=== PATIENT | female | born 1960 | race Caucasian/White ===

== ENCOUNTER 2020-06-20 08:26 | Outpatient (CLI) | payer OTHER, SELFPAY ==
--- NOTE | ~2020-06-20 | XR_ITS ---
EXAMINATION: XR hip LT min 2V DATE: 06/20/2020 08:53 INDICATION: Left hip pain. TECHNIQUE: 3 views of left hip were obtained. COMPARISON: Left hip radiographs 10/23/12 FINDINGS: Bone alignment is normal. No fracture. There is moderate left hip osteoarthritis. IMPRESSION: 1. Moderate left hip osteoarthritis. Reviewed, dictated and finalized at location A.
== END 2020-06-20 08:27 | disposition home or self-care (01) ==
LOC: ANHIMG 08:34
PROVIDERS: PCP Family Medicine; Visit Provider Family Medicine
DX: M16.12 Unilateral primary osteoarthritis, left hip (principal)
CPT/HCPCS: 73502

== ENCOUNTER 2020-11-03 16:17 | Outpatient (CLI) | payer OTHER, SELFPAY | END 2020-11-03 16:18 | disposition home or self-care (01) | LOC: ANHCOVIDVC 16:17 | PROVIDERS: PCP Family Medicine | DX: Z23 Encounter for immunization (principal) | CPT/HCPCS: 0001A; 91300 ==

== ENCOUNTER 2020-11-24 16:15 | Outpatient (CLI) | payer OTHER, SELFPAY | END 2020-11-24 16:16 | disposition home or self-care (01) | LOC: ANHCOVIDVC 16:15 | PROVIDERS: PCP Family Medicine | DX: Z23 Encounter for immunization (principal) | CPT/HCPCS: 0002A; 91300 ==

== ENCOUNTER 2021-02-13 10:18 | Outpatient (CLI) | payer OTHER, SELFPAY ==
--- NOTE | ~2021-02-13 | MM_ITS ---
EXAMINATION: MM screening diana BI w harley HISTORY: Screening mammogram TECHNIQUE: Craniocaudal and mediolateral oblique 3-D tomosynthesis images were obtained and synthetic 2-D images were generated. CAD analysis was submitted and interpreted. COMPARISON: 03/20/2019 diagnostic right mammogram and limited right breast ultrasound 03/09/2019, 02/24/2018, 05/20/2018 bilateral digital screening mammogram examinations BREAST PARENCHYMAL COMPOSITION: The breasts are almost entirely fatty. FINDINGS: Circumscribed low-density approximately 4.5 mm opacity in the lower central right breast co rresponds to the 5 mm simple cyst documented on 03/20/2019 limited right breast ultrasound examination . No suspicious mass, architectural distortion, malignant calcification, skin thickening or retraction or significant new or developing density of either breast is detected. IMPRESSION: 1. No mammographic evidence of malignancy. 2. Recommend routine screening mammography in one year. BI-RADS Category 2: Benign finding(s). Reviewed, dictated and finalized at location A.
== END 2021-02-13 10:19 | disposition home or self-care (01) ==
LOC: ANHIMG 10:20
PROVIDERS: PCP Family Medicine; Visit Provider Family Medicine
DX: Z12.31 Encounter for screening mammogram for malignant neoplasm of breast (principal)
CPT/HCPCS: 77063; 77067

== ENCOUNTER 2021-07-29 15:20 | Outpatient (CLI) | payer OTHER, SELFPAY ==
--- NOTE | ~2021-07-29 | CT_ITS ---
EXAMINATION: CT abdomen pelvis wo/w con DATE: 07/29/2021 16:45 INDICATION: Hematuria TECHNIQUE: Computed tomography (CT) of the abdomen and pelvis was performed without intravenous contr ast. CT of the abdomen and pelvis was then performed with a total of 130 mL Omnipaque 350 intravenous contrast using a double-bolus technique for simultaneous opacification of the renal parenchyma and r enal collecting system. The dose-length product (DLP) was 2746.92 mGy-cm. Automated exposure control and iterative reconstruction technique were employed. COMPARISON: None FINDINGS: The lung bases are clear. The heart size is normal. Calcified coronary artery atheroscleros is is noted. There is a small sliding hiatal hernia. The liver, spleen, pancreas, gallbladder, and ad renal glands are normal. No stones are identified in the kidneys, ureters, or bladder. There is no hy dronephrosis or hydroureter. No suspicious renal or urothelial lesion is identified. Portions of the right ureter are not opacified however no obstructing lesion is identified. No pathologically enlarge d abdominal or pelvic lymph nodes are identified. There is no free intraperitoneal gas or evidence of bowel obstruction. Colonic diverticulosis is present without evidence of diverticulitis. The appendi x is normal. There is a compression fracture T12. There is moderate lumbar spondylosis. IMPRESSION: 1. No CT correlate for the patient's symptoms. Reviewed, dictated and finalized at location A. GNA LACER
[2021-07-29 16:22] LABS: Estimated Glomerular Filt Rate 42
== END 2021-07-29 15:21 | disposition home or self-care (01) ==
PROVIDERS: PCP Family Medicine; Visit Provider Physician Assistant
DX: R31.9 Hematuria, unspecified (principal); M47.816 Spondylosis without myelopathy or radiculopathy, lumbar region; M48.54XA Collapsed vertebra, not elsewhere classified, thoracic region, initial encounter for fracture
CPT/HCPCS: 74178; Q9967

== ENCOUNTER 2021-09-29 08:09 | Outpatient (CLI) | payer OTHER, SELFPAY ==
--- NOTE | 2021-09-29 | ECG_ITS ---
Measurements Intervals Watson Rate: 74 P: 36 MI: 179 QRS: -17 QRSD: 97 T: 17 QT: 374 QTc: 417 Interpretive Statements SINUS RHYTHM VOLTAGE CRITERIA FOR LVH CONSIDER INFERIOR INFARCT, AGE INDETERMINATE ABNORMAL ECG Electronically Signed On 09-29-2021 9:16:42 TILE DECORATOR by Anderson Foster D.O.
[2021-09-29 08:53] LABS: Hematocrit 35.9 % (37.0-47.0); Hemoglobin 11.6 g/dL (12.0-15.0)
[2021-09-29 09:02] LABS: Albumin Level 4.7 g/dL (3.5-5.1); Estimated Glomerular Filt Rate 56
[2021-09-29 09:10] LABS: Urine Cotinine NEGATIVE
[2021-09-29 09:36] LABS: Hemoglobin A1C 6.5 % (<5.7)
[2021-09-29 12:24] LABS: Glucose 176 mg/dL (65-110)
== END 2021-09-29 08:10 | disposition home or self-care (01) ==
PROVIDERS: PCP Family Medicine; Visit Provider Orthopaedic Surgery
DX: Z01.818 Encounter for other preprocedural examination (principal); M16.12 Unilateral primary osteoarthritis, left hip; R94.31 Abnormal electrocardiogram [ECG] [EKG]
CPT/HCPCS: 80307; 82040; 82565; 82947; 83036; 85014; 85018; 93005

== ENCOUNTER 2021-12-21 12:06 | Outpatient (CLI) | payer OTHER, SELFPAY ==
[2021-12-21 13:34] LABS: Basophils Percent Auto 0.4 % (0.2-1.2); Eosinophils Absolute Auto 0.1 K/mm3 (0-0.3); Eosinophils Percent Auto 1.3 % (0-4.4); Hematocrit 35.3 % (37.0-47.0); Hemoglobin 11.6 g/dL (12.0-15.0); Immature Granulocyte Absolute 0.04 K/mm3 (0.00-0.031); Immature Granulocyte Percent A 0.5 % (0-0.5); Lymphocytes Absolute Auto 1.65 K/mm3 (0.9-3.2); Lymphocytes Percent Auto 19.9 % (18.3-44.2); Mean Corpuscular HGB Conc 32.9 g/dl (32-36); Mean Corpuscular Volume 88.3 fl (80-100); Mean Platelet Volume 8.7 fl (7.4-10.4); Monocytes Absolute Auto 0.6 K/mm3 (0.1-0.6); Monocytes Percent Auto 6.6 % (2.6-8.5); Neutrophils Absolute Auto 5.9 K/mm3 (1.3-6.7); Neutrophils Percent Auto 71.3 % (45.5-73.1); Platelet Count Result 221 k/mm3 (150-375); Red Cell Distribution Width 15.4 % (11.5-14.5); White Blood Count 8.3 K/mm3 (4.5-10.0)
[2021-12-21 13:45] LABS: Urine Cotinine NEGATIVE
[2021-12-21 13:47] LABS: Albumin Level 4.8 g/dL (3.5-5.1)
[2021-12-21 13:49] LABS: Hemoglobin A1C 7.3 % (<5.7)
[2021-12-21 13:52] LABS: Anion Gap 7 mmol/L (8-16); Blood Urea Nitrogen 21 mg/dL (7-17); Calcium 10.3 mg/dL (8.4-10.2); Carbon Dioxide 31 mmol/L (22-30); Chloride 98 mmol/L (98-107); Estimated Glomerular Filt Rate > 60; Glucose 103 mg/dL (65-110); Potassium 4.7 mmol/L (3.4-5.0); Sodium 136 mmol/L (137-145)
== END 2021-12-21 12:07 | disposition home or self-care (01) ==
LOC: ANHSURGERY 12:09
PROVIDERS: Anesthesiology; PCP Family Medicine; Visit Provider Orthopaedic Surgery
DX: Z01.818 Encounter for other preprocedural examination (principal); M16.12 Unilateral primary osteoarthritis, left hip; E11.65 Type 2 diabetes mellitus with hyperglycemia
CPT/HCPCS: 36415; 80048; 80307; 82040; 83036; 85025; 87081

== ENCOUNTER 2021-12-24 00:53 | Day surgery (SDC) | payer OTHER, SELFPAY ==
[2021-12-08 13:02] VITALS: BMI 37.7
--- NOTE | 2021-12-23 13:52 | PM.HPGS ---
History of Present Illness History of Present Illness Consent: Risks, benefits, and alternatives have been discussed and questions answered. Patient agrees to proceed with procedure. Chief complaint: hx of colon polyps Narrative: Georgette Edouard is a 61 year old female here for colon cancer screening. She has had polyps in the past, having had 1 removed in 2017 Review of Systems Review of Systems: All systems reviewed & are unremarkable except as noted in HPI and below PMFSH Past Medical History Medical History DM w/o complication type II, uncontrolled Elevated LFTs Essential (primary) hypertension Mixed hyperlipidemia Obesity, unspecified Post menopausal syndrome Surgical History Surgical History Hx of arthroscopy of knee (~10/1999) Left Hx of arthroscopy of knee (~11/2006) Right Family History Family History Mother Diabetes mellitus Father Hypertension Carcinoma of colon Family history of Parkinson's disease Grandparent Hypertension Carcinoma of colon Sibling Hypertension Family history of cardiovascular disease Acute myocardial infarction, Onset Age: 40 Other No family history of cardiovascular disease Social History Social History Smoking status: Never smoker Alcohol intake: never Substance use: never Living arrangements: with family Additional living arrangements comments: HUSB Spiritual care concerns: No Meds Home Medications and Allergies Home Medications Medication Instructions Recorded Confirmed Type tramadol 50 mg tablet 50 mg PO Q6H PRN #60 tablet 08/11/21 12/24/21 Rx empagliflozin 25 mg tablet 25 mg PO QAM #90 tablet 11/11/21 12/24/21 Rx acetaminophen 500 mg tablet 1,000 mg PO Q6H PRN tablet 11/23/21 12/24/21 History ferrous sulfate 325 mg (65 mg 325 mg PO BID 11/23/21 12/24/21 History iron) tablet ibuprofen 200 mg tablet 800 mg PO HS PRN 11/23/21 12/24/21 History magnesium 250 mg tablet 500 mg PO QAM tablet 11/23/21 12/24/21 History pyridoxine (vitamin B6) 100 mg 100 mg PO QACDINNER tablet 11/23/21 12/24/21 History tablet vitamin B complex 1 tablet PO QACDINNER 11/23/21 12/24/21 History atorvastatin 20 mg PO HS 12/08/21 12/24/21 History calcium carbonate-vitamin D3 1 tablet PO BID 12/08/21 12/24/21 History cholecalciferol (vitamin D3) 50 mcg PO QACDINNER 12/08/21 12/24/21 History glyburide 10 mg PO BID 12/08/21 12/24/21 History metformin 1,000 mg PO BID 12/08/21 12/24/21 History metoprolol succinate 50 mg PO QAM 12/08/21 12/24/21 History benzonatate 200 mg PO TID PRN 12/21/21 12/24/21 History hydrochlorothiazide 12.5 mg PO QAM 12/21/21 12/24/21 History insulin glargine-yfgn 94 unit SUBCUT QPM 12/21/21 12/24/21 History [Semglee(insulin glarg-yfgn)Pen] quinapril 40 mg PO QAM 12/21/21 12/24/21 History Allergies Allergy/AdvReac Type Severity Reaction Status Date / Time indapamide Allergy Unknown elevated Verified 12/24/21 06:35 liver Exam Resp: Auscultation: clear to auscultation bilaterally Cardio: Rate: regular rate Rhythm: regular rhythm GI: GI Palp: Yes Soft to palpation and No Tenderness to palpation present (GI) Assessment and Plan Assessment and plan (1) Colon cancer screening: Code(s): Z12.11 - Encounter for screening for malignant neoplasm of colon Status: Acute Assessment and Plan: Colonoscopy with possible biopsy or polypectomy or cautery or injection of substances.
[2021-12-24 06:36] VITALS: BP 151/75; PULSE 78; RESP 18; TEMP 36.4; O2SAT 100
[2021-12-24] MEDS: LACTATED RINGERS 1,000 ML 150 ML IV CONT (06:47)
[2021-12-24 06:52] LABS: Glucose Point of Care 178 mg/dl (65-105)
--- NOTE | 2021-12-24 07:02 | WPDANESEPPF ---
Anes - Initial Pre Proc Eval Procedure: Operation Date: 12/24/21 07:30 Proposed Procedures p Screening Colonoscopy - Cameron Mohr MD Date/Time: 12/24/21 07:02 Surgeon: Cameron Mohr MD Pre Op Diagnosis: hx of colon polyps Patient Data Age: 61 Gender: F Height: 1.68 m Weight: 104 kg Last Vital Signs Temp 36.4 C L 12/24/21 06:36 Pulse 78 12/24/21 06:36 Resp 18 12/24/21 06:36 BP 151/75 H 12/24/21 06:36 Pulse Ox 100 12/24/21 06:36 Allergies Allergy/AdvReac Type Severity Reaction Status Date / Time indapamide Allergy Unknown elevated Verified 12/24/21 06:35 liver Home Medications Medication Instructions Recorded Confirmed Type tramadol 50 mg tablet 50 mg PO Q6H PRN #60 tablet 08/11/21 12/24/21 Rx empagliflozin 25 mg tablet 25 mg PO QAM #90 tablet 11/11/21 12/24/21 Rx acetaminophen 500 mg tablet 1,000 mg PO Q6H PRN tablet 11/23/21 12/24/21 History ferrous sulfate 325 mg (65 mg 325 mg PO BID 11/23/21 12/24/21 History iron) tablet ibuprofen 200 mg tablet 800 mg PO HS PRN 11/23/21 12/24/21 History magnesium 250 mg tablet 500 mg PO QAM tablet 11/23/21 12/24/21 History pyridoxine (vitamin B6) 100 mg 100 mg PO QACDINNER tablet 11/23/21 12/24/21 History tablet vitamin B complex 1 tablet PO QACDINNER 11/23/21 12/24/21 History atorvastatin 20 mg PO HS 12/08/21 12/24/21 History calcium carbonate-vitamin D3 1 tablet PO BID 12/08/21 12/24/21 History cholecalciferol (vitamin D3) 50 mcg PO QACDINNER 12/08/21 12/24/21 History glyburide 10 mg PO BID 12/08/21 12/24/21 History metformin 1,000 mg PO BID 12/08/21 12/24/21 History metoprolol succinate 50 mg PO QAM 12/08/21 12/24/21 History benzonatate 200 mg PO TID PRN 12/21/21 12/24/21 History hydrochlorothiazide 12.5 mg PO QAM 12/21/21 12/24/21 History insulin glargine-yfgn 94 unit SUBCUT QPM 12/21/21 12/24/21 History [Semglee(insulin glarg-yfgn)Pen] quinapril 40 mg PO QAM 12/21/21 12/24/21 History Laboratory Tests 12/24/21 06:49 POC Capillary Glucose 178 mg/dl H mg/dl (65-105) Patient hx anesthesia problems: none Family hx anesthesia problems: none Results Review: All pre-operative results and documents have been reviewed as part of the pre-operative evaluation. [facility] Past Medical History Medical History DM w/o complication type II, uncontrolled Elevated LFTs Essential (primary) hypertension Mixed hyperlipidemia Obesity, unspecified Post menopausal syndrome Surgical History Surgical History Hx of arthroscopy of knee (~10/1999) Left Hx of arthroscopy of knee (~11/2006) Right Family History Family History Mother Diabetes mellitus Father Hypertension Carcinoma of colon Family history of Parkinson's disease Grandparent Hypertension Carcinoma of colon Sibling Hypertension Family history of cardiovascular disease Acute myocardial infarction, Onset Age: 40 Other No family history of cardiovascular disease Social History Social History Smoking status: Never smoker Alcohol intake: never Substance use: never Living arrangements: with family Additional living arrangements comments: HUSB Spiritual care concerns: No Anes - Eval Final PreProcedure Day of Procedure 12/24/21 07:02 Patient weight: obese Heart: regular rate and rhythm Lungs: clear to auscultation Airway: Mallampati scale class II Neurological: alert and oriented Last oral intake: >/= 8 hours ASA classification: III Emergent: no Anesthetic plan: proceed Anesthesia type and monitoring: general GIVS and standard monitoring Results Review: All pre-operative results and documents have been reviewed as part of the pre-operative evaluation. Informed Consent: The patient's anesthetic pl
[2021-12-24 07:50] VITALS: BP 113/48; PULSE 71; RESP 22; O2SAT 100
[2021-12-24 08:00] VITALS: BP 128/69; PULSE 67; RESP 23; O2SAT 100
[2021-12-24 08:10] VITALS: BP 141/76; PULSE 68; RESP 18; O2SAT 100
== END 2021-12-24 08:30 | disposition home or self-care (01) ==
PROVIDERS: PCP Family Medicine; Visit Provider Internal Medicine Gastroenterology
PROC: 0DJD8ZZ Inspection of Lower Intestinal Tract, Via Natural or Artificial Opening Endoscopic (ICD-10-PCS; CPT 45378; principal; 2021-12-24 07:30)
DX: Z12.11 Encounter for screening for malignant neoplasm of colon (principal); E11.9 Type 2 diabetes mellitus without complications; I10 Essential (primary) hypertension; E78.2 Mixed hyperlipidemia; E66.9 Obesity, unspecified; K64.8 Other hemorrhoids; K57.30 Diverticulosis of large intestine without perforation or abscess without bleeding
CPT/HCPCS: 45378; 82948; J2704; J7120

== ENCOUNTER 2022-01-19 00:06 | Day surgery (SDC) | payer OTHER, SELFPAY ==
[2021-12-21 12:22] VITALS: BMI 39.3
[2021-12-21 12:36] VITALS: BP 159/77; PULSE 78; RESP 16; TEMP 36.8; O2SAT 97
--- NOTE | 2021-12-21 12:49 | PC.NURSE ---
Report to the Outpatient Waiting Room, entrance under the green pavilion located off [facility], at time __8:30AM on date __01/19/22 . OR Time: __10:30AM . - You and your visitor will be asked a series of questions to screen for COVID 19 for your protection. - Only one visitor is allowed at this time. - The patient visitor is requested to leave or wait in car when not with patient. - A mask is required within the hospital. Patients may have clear liquids (water, carbonated beverages, clear teas, apple juice) until 3 hours prior to surgery with a maximum of 20 ounces. - No food from midnight until time of surgery - Infants may have breast milk until 4 hours before surgery, infant formula 6 hours prior to surgery. - Children will be allowed to drink immediately following surgery. If applicable, please bring a bottle or sippy cup to assist with drinking. Juice, water, soda, and popsicles are readily available. For infants on formula, please bring formula the day of surgery. Pacifiers are allowed. Take the following medications with a SIP of water the morning of surgery: ____METOPROLOL, TRAMADOL NEEDED Medications to discontinue per physician ____HOLD IBUPROFEN AND ALL VITAMINS/SUPPLEMENTS 7 DAYS PRE-OP PER DR OWEN Date to take last dose 01/12/22 Please no make-up, nail wolof, hairspray, perfume, deodorant, or body powder the day of surgery. No jewelry (including any body piercings) or valuables the day of surgery, leave them at home. Please take a shower or bath the night before, or the morning of, surgery with an antibacterial soap. Wear comfortable, loose fitting clothing. Children are encouraged to wear pajamas. - Jewelry must be removed prior to entering the operating room. Rings and piercings that are not removed may be cut off. - The hospital will not accept responsibility for valuables. - Please leave all valuables, including medications, at home the day of surgery. If you are going home after surgery, a licensed winch driver must drive you home. - NO public transportation without another adult. - We recommend that an adult stay with you for 24 hours following discharge. - We also recommend that you do not drive, make important decision, drink alcoholic beverages, or take any drugs that were not prescribed by your health care provider for at least 24 hours after your discharge time. For Pediatric surgeries, we recommend two adults accompany the child home (only one inside the building at this time). Follow any additional instructions given to you from your surgeon. If you or anyone in your household have experienced Covid symptoms in the past week, please notify your surgeon or the nurse liaison at the phone number below for possible testing. Telephone instructions given to __PATIENT and asked if any additional questions and then verbalized understanding. Patient advised to call surgeon office or pre surgery nurse liaison [phone] if any additional questions.
[2022-01-19] VITALS (18 sets, daily range): BP systolic 129–155; BP diastolic 51–92; PULSE 74–88; RESP 12–20; TEMP 35.7–36.4; O2SAT 95–100
--- NOTE | ~2022-01-19 | XR_ITS ---
EXAMINATION: XR hip LT min 2V DATE: 01/19/2022 12:37 INDICATION: Postoperative evaluation following left total hip arthroplasty TECHNIQUE: Anteroposterior and lateral views of the left hip were obtained. COMPARISON: 12/21/2021 FINDINGS: Interval placement of a noncemented left total hip arthroplasty which appears well seated in near armaan tomic alignment. Expected subcutaneous gas in the postoperative bed. No fractures identified. IMPRESSION: 1. Left total hip arthroplasty, negative for postoperative purposes. Reviewed, dictated and finalized at location B.
--- NOTE | 2022-01-19 07:18 | WPDHPUPDATE1 ---
History and Physical Update Update Date/Time: 01/19/22 07:18 History and Physical has been reviewed, including an updated exam of the patient. There are NO changes in the patient's condition. Risks, benefits, and alternatives have been discussed and questions answered. Patient agrees to proceed with procedure.
[2022-01-19] MEDS: LACTATED RINGERS 1,000 ML 30 ML IV CONT ×2 (08:30→12:13)
--- NOTE | 2022-01-19 08:43 | WPDANESEPPF ---
Anes - Initial Pre Proc Eval Procedure: Operation Date: 01/19/22 10:30 Proposed Procedures p Left Total Hip Arthroplasty - Davon Ash MD Date/Time: 01/19/22 08:43 Surgeon: Davon Ash MD Pre Op Diagnosis: Prim O A Left Hip Patient Data Age: 61 Gender: F Height: 1.64 m Weight: 106.4 kg Last Vital Signs Temp 36.8 C 12/21/21 12:36 Pulse 78 12/21/21 12:36 Resp 16 12/21/21 12:36 BP 159/77 H 12/21/21 12:36 Pulse Ox 97 12/21/21 12:36 O2 Del Method Room Air 12/21/21 12:36 Allergies Allergy/AdvReac Type Severity Reaction Status Date / Time indapamide Allergy Unknown elevated Verified 12/24/21 06:35 liver Home Medications Medication Instructions Recorded Confirmed Type tramadol 50 mg tablet 50 mg PO Q6H PRN pain #60 tabs 08/11/21 12/24/21 Rx empagliflozin 25 mg tablet 25 mg PO QAM #90 tabs 11/11/21 12/24/21 Rx (Jardiance) acetaminophen 500 mg tablet 1,000 mg PO Q6H PRN Pain 11/23/21 12/24/21 History (Tylenol Extra Strength) ferrous sulfate 325 mg (65 mg 325 mg PO BID 11/23/21 12/24/21 History iron) tablet ibuprofen 200 mg tablet (Advil) 800 mg PO HS PRN Pain 11/23/21 12/24/21 History magnesium 250 mg tablet 500 mg PO QAM 11/23/21 12/24/21 History pyridoxine (vitamin B6) 100 mg 100 mg PO QACDINNER 11/23/21 12/24/21 History tablet vitamin B complex (B 1 tablet PO QACDINNER 11/23/21 12/24/21 History Complex-Vitamin B12) atorvastatin 20 mg tablet 20 mg PO HS 12/08/21 12/24/21 History calcium carbonate 500 mg-vitamin 1 tablet PO BID 12/08/21 12/24/21 History D3 2.5 mcg (100 unit) chewable tablet cholecalciferol (vitamin D3) 50 50 mcg PO QACDINNER 12/08/21 12/24/21 History mcg (2,000 unit) tablet glyburide 5 mg tablet 10 mg PO BID 12/08/21 12/24/21 History metformin 500 mg tablet,extended 1,000 mg PO BID 12/08/21 12/24/21 History release 24 hr metoprolol succinate 50 mg 50 mg PO QAM 12/08/21 12/24/21 History tablet,extended release 24 hr benzonatate 200 mg capsule 200 mg PO TID PRN Cough 12/21/21 12/24/21 History hydrochlorothiazide 12.5 mg capsule 12.5 mg PO QAM 12/21/21 12/24/21 History insulin glargine-yfgn 100 unit/mL 94 unit subcut QPM 12/21/21 12/24/21 History (3 mL) subcutaneous pen (Semglee (insulin glargine-yfgn) Pen) quinapril 40 mg tablet 40 mg PO QAM 12/21/21 12/24/21 History Patient hx anesthesia problems: none Family hx anesthesia problems: none Results Review: All pre-operative results and documents have been reviewed as part of the pre-operative evaluation. [facility] Past Medical History Medical History DM w/o complication type II, uncontrolled Elevated LFTs Essential (primary) hypertension Mixed hyperlipidemia Obesity, unspecified Post menopausal syndrome Surgical History Surgical History Hx of arthroscopy of knee (~10/1999) Left Hx of arthroscopy of knee (~11/2006) Right Family History Family History Mother Diabetes mellitus Father Hypertension Carcinoma of colon Family history of Parkinson's disease Grandparent Hypertension Carcinoma of colon Sibling Hypertension Family history of cardiovascular disease Acute myocardial infarction, Onset Age: 40 Other No family history of cardiovascular disease Social History Social History Smoking status: Never smoker Alcohol intake: never Substance use: never Living arrangements: with family Additional living arrangements comments: HUSB Spiritual care concerns: No Anes - Eval Final PreProcedure Day of Procedure 01/19/22 08:43 Patient weight: obese Heart: regular rate and rhythm Lungs: clear to auscultation Airway: Mallampati scale class II Neurological: alert and oriented ASA class
[2022-01-19] MEDS: TRANEXAMIC ACID 1,000MG/ISO100 1,000 MG/100 ML BAG 200 MG IVPB (08:45)
[2022-01-19] MEDS: ACETAMINOPHEN 500 MG TABLET 1000 MG PO (08:48)
[2022-01-19 09:10] LABS: Glucose Point of Care 175 mg/dl (65-105)
[2022-01-19] MEDS: ceFAZolin 2 GM/D5W 50 ML 2 GM/50 ML BAG IVPB ×2 (10:09→17:02)
[2022-01-19 12:30] LABS: Glucose Point of Care 147 mg/dl (65-105)
[2022-01-19] MEDS: ONDANSETRON INJ 4 MG/2 ML VIAL IV PUSH ×2 (13:05→14:31)
--- NOTE | 2022-01-19 14:07 | ADMGEN ---
This patient, Georgette Edouard, was admitted to 2 Medical Room 250-01. Patient/family oriented to hospital policies and general routines including ID bracelet, bed and alarms, visiting hours, pain management, procedures, bathroom and other care routines, personal items, smoking policy, room service/diet, and visiting hours. Information on how to activate the Rapid Response Team has been discussed. Patient/Family are encouraged to report perceived risks to care and to ask questions if they do not understand what they are told or what they should do. Report received from CARISSA Rader.
[2022-01-19] MEDS: SODIUM CHLORIDE 0.9% IV 1,000 ML 125 ML IV CONT (14:32)
--- NOTE | 2022-01-19 14:39 | W.PM.PROC2 ---
Procedure Note - Detailed Date of Procedure 01/19/22 Pre-op Diagnosis Prim O A Left Hip Post-op Diagnosis Same Procedure Performed Left Total Hip Arthroplasty Surgeon Davon Ash MD [employer] Tester Annelise Nassar PA-C Anesthesia General Description of Procedure The patient was given preoperative antibiotics. A general anesthetic was administered. The patient was carefully placed in the lateral decubitus position on the PEG board. The shoulders and hips were carefully positioned for component and leg length positioning reference. The hip was prepped and draped in the usual sterile fashion. A longitudinal incision was created over the posterior aspect of the greater trochanter. Careful dissection was brought down through the deep fascia with electrocautery. A minimally invasive optimized posterior approach to the hip was performed. The short external rotators and capsule were taken down in an L-shaped capsulotomy. The tissue was tagged for later repair using number 2 high strength suture. The femoral neck was measured and taken in situ. The femoral head was removed. The acetabulum was carefully exposed. The inferior capsule was released. The labrum was resected. The acetabulum was sequentially reamed to one over the intended cup size. The cup was impacted into position with excellent press-fit. Typical anatomic landmarks, including the bony contact points as well as the inferior transverse acetabular ligament were used to confirm cup positioning with preoperative templating. Attention was turned to the femur, which was carefully exposed. The hip was reamed and then broached sequentially. Excellent press-fit was obtained with the broach. The hip was trialed. Measurements were utilized, including the lesser trochanter as well as the center of the femoral head and the tip of the trochanter, and excellent assessment of the offset and leg lengths were confirmed. The real component was impacted into position. Trialing confirmed appropriate leg length and offset with soft tissue balancing as well apparent feel of the leg, both at the knee and the heel. Soft tissues were assessed using the the iliotibial band. Reduction of the posterior capsule and external rotators were also used as a secondary assessment. The hip was copiously irrigated with pulsatile lavage antibiotic solution periodically throughout the procedure. The real components were then assembled and reduced. The hip was stable throughout typical maneuvers, including extension, external rotation to 70 degrees, the position of sleep as well as flexion to 90 degrees with internal rotation past 45 degrees. The shake test confirmed stability without impingement. Osteophytes were removed as necessary. The short external rotators and capsule were repaired back to the posterior trochanter through drill holes. The deep fascia was repaired with running number 2 Quill suture, followed by 0 Stratafix suture and 2-0 Stratafix suture in the dermis. Steri-Strips were placed on the skin, followed by a sterile silver occlusive dressing. There were no complications. Meticulous hemostasis was maintained with the AquaMantys device. The patient was brought to the recovery room in stable condition. There were no complications. Physician assistant to the vice president, Annelise Nassar PA-C, required for surgery; including patient positioning, draping, tissue retraction, maintaining instrument position, hip dislocation/ relocation, wound closure, and dressing placement. Implants The Accolade II hip stem, 127 degree size 4 , was utilized with excellent press-fit. The 52 mm Trident II acetabular component was impacted with excellent press-fit stability. 10 degree elevated liner. The +0 , 36 mm Biolox ceramic femoral head was utilized. Estimated Blood Loss -250.0 Drains No Packing No Pathology None sent Complications No immediate complications Condition Stable Disposition PACU [facility] Billing Surgery - Charge Forwar
--- NOTE | 2022-01-19 14:51 | PC.NURSE ---
Patient states she takes 94 units of Semglee at home. She was taking 100 units, but her doctor told her she could decrease it to 94. I called patient's pharmacy that she fills this prescription to verify this dose. The pharmacy confirmed the dose that is ordered is 100 units. I called our pharmacy to verify this dose. They stated this dose is a high dose, but is a true order.
[2022-01-19] MEDS: CHOLECALCIFEROL 1,000 UNITS TABLET 2000 UNITS PO (16:19)
[2022-01-19] MEDS: glyBURIDE 5 MG TABLET 10 MG PO (16:20)
[2022-01-19] MEDS: metFORMIN HCL XR 500 MG TAB.SR.24H 1000 MG PO (16:20)
[2022-01-19] MEDS: PYRIDOXINE HCL 50 MG TABLET 100 MG PO (16:20)
[2022-01-19] MEDS: FERROUS SULFATE 324 MG TABLET PO (16:20)
[2022-01-19] MEDS: SENNA/DOCUSATE SODIUM TABLET 2 TAB PO (16:20)
[2022-01-19] MEDS: MELOXICAM 7.5 MG TABLET PO (16:21)
[2022-01-19] MEDS: ASPIRIN 81 MG ENTERIC TABLET PO (16:21)
[2022-01-19] MEDS: VITAMIN B COMPLEX CAPSULE 1 CAP PO (16:21)
[2022-01-19] MEDS: oxyCODONE HCL (*CRX) 5 MG TAB IR 10 MG PO (16:22)
[2022-01-19 16:34] LABS: Glucose Point of Care 192 mg/dl (65-105)
[2022-01-19] MEDS: INSULIN GLARGINE (*BKC) 100 UNITS/ML 94 UNITS SUB-Q (17:02)
[2022-01-19] MEDS: ATORVASTATIN 20 MG TABLET PO (20:19)
[2022-01-19] MEDS: FAMOTIDINE 20 MG TABLET PO (20:19)
[2022-01-20 01:15] VITALS: BP 104/56; PULSE 80; RESP 20; TEMP 36.5; O2SAT 99
[2022-01-20] MEDS: ceFAZolin 2 GM/D5W 50 ML 2 GM/50 ML BAG IVPB ×2 (02:39→08:59)
[2022-01-20 02:40] LABS: Glucose Point of Care 164 mg/dl (65-105)
[2022-01-20 04:51] VITALS: O2SAT 97
[2022-01-20 05:01] VITALS: BP 107/42; PULSE 90; RESP 20; TEMP 36.9; O2SAT 98
[2022-01-20 07:32] VITALS: BP 135/55; PULSE 94; RESP 16; TEMP 36.3; O2SAT 100
[2022-01-20 07:44] LABS: Glucose Point of Care 190 mg/dl (65-105)
[2022-01-20 08:12] VITALS: PULSE 76
[2022-01-20] MEDS: METOPROLOL SUCCINATE EXT REL 50 MG TABCR PO (08:12)
[2022-01-20] MEDS: lisinopriL 20 MG TABLET 40 MG PO (08:13)
[2022-01-20] MEDS: metFORMIN HCL XR 500 MG TAB.SR.24H 1000 MG PO (08:13)
[2022-01-20] MEDS: MAGNESIUM 27 MG TABLET (500 MG MAG GLUCONATE) PO (08:13)
[2022-01-20] MEDS: FAMOTIDINE 20 MG TABLET PO (08:14)
[2022-01-20] MEDS: glyBURIDE 5 MG TABLET 10 MG PO (08:14)
[2022-01-20] MEDS: ASPIRIN 81 MG ENTERIC TABLET PO (08:14)
[2022-01-20] MEDS: FERROUS SULFATE 324 MG TABLET PO (08:14)
[2022-01-20] MEDS: hydroCHLOROthiazide 12.5 MG CAPSULE PO (08:14)
[2022-01-20] MEDS: EMPAGLIFLOZIN 25 MG TABLET PO (08:14)
[2022-01-20] MEDS: MELOXICAM 7.5 MG TABLET PO (08:14)
--- NOTE | 2022-01-20 09:20 | WPDANESPN ---
Anes - Prog Note Post-Op Date/Time: 01/20/22 09:20 Cardiovascular status: normal Respiratory status: normal Airway patency: baseline Mental status: baseline Post-Op hydration status: normal Vital Signs: Last Vital Signs Temp 36.3 C L 01/20/22 07:32 Pulse 76 01/20/22 08:12 Resp 16 01/20/22 07:32 BP 135/55 L 01/20/22 07:32 Pulse Ox 100 01/20/22 07:32 O2 Del Method Room Air 01/20/22 04:51 O2 Flow Rate 8 01/19/22 12:40 Pain Score (VAS): 10/01 I/O: Intake & Output 01/19/22 01/20/22 01/20/22 23:59 07:59 15:59 Intake Total 1070 550 Balance 1070 550 01/19/22 01/19/22 01/19/22 08:45 12:20 16:32 POC Capillary Glucose 147 H 192 H Blood Type B Positive Antibody Screen Negative 01/20/22 01/20/22 02:35 07:32 POC Capillary Glucose 164 H 190 H Blood Type Antibody Screen Post-procedural complaints: none Patient Feedback: Patient satisfied with anesthetic care.
--- NOTE | 2022-01-20 09:26 | PM.IMCN ---
Assessment and Plan Assessment and plan (1) Status post left hip replacement: Code(s): Z96.642 - Presence of left artificial hip joint Status: Acute Assessment and Plan: POD #1 left total hip arthroplasty Managed per orthopedic surgery Patient tolerating PT/OT Analgesics available as needed (2) DM w/o complication type II, uncontrolled: Code(s): E11.65 - Type 2 diabetes mellitus with hyperglycemia Status: Acute Assessment and Plan: Last A1c 7.3 Continue home insulin regimen and PO hypoglycemics (3) Anemia, unspecified: Code(s): D64.9 - Anemia, unspecified Status: Acute Assessment and Plan: H&H reviewed and are stable (4) Benign essential HTN: Code(s): I10 - Essential (primary) hypertension Status: Acute Assessment and Plan: Blood pressures have been well controlled Continue HCTZ, metoprolol, lisinopril HPI Data of Consult Consult date: 01/20/22 Requesting Physician: Davon Ash MD Primary Care Provider: Emory Oglesby MD Consult Narrative Narrative: Date of service: 01/20/2022 Georgette Edouard is a 61 year old female with a history of type 2 diabetes mellitus, hypertension, hyperlipidemia, and osteoarthritis of the left hip who is now s/p left total hip arthroplasty performed on 01/19/[address] Ash. She tolerated the procedure well. Her pain is 4/10 at this time. She has been participating in therapy and has been doing well with this. She plans to return home today which she lives with her who is able to assist her as needed. She has 1 step to enter her home and otherwise has no additional stairs. She denies shortness of breath. Her last BM was yesterday morning. She had some mild nausea postoperatively but this has resolved and she is tolerating her diet. Review of Systems Review of Systems: All systems reviewed & are unremarkable except as noted in HPI and below PMFSH Past Medical History Medical History (Updated 01/20/22 @ 09:45 by SHAR Gilliland) DM w/o complication type II, uncontrolled Elevated LFTs Essential (primary) hypertension Mixed hyperlipidemia Obesity, unspecified Osteoarthritis of left hip Post menopausal syndrome Surgical History Surgical History (Updated 01/20/22 @ 09:36 by Lynda Cárdenas PA-C) History of left hip replacement Hx of arthroscopy of knee (~10/1999) Left Hx of arthroscopy of knee (~11/2006) Right Family History Family History Mother Diabetes mellitus Father Hypertension Family history of Parkinson's disease Heart disease Parkinson disease Grandparent Hypertension Carcinoma of colon Sibling Hypertension Family history of cardiovascular disease Acute myocardial infarction, Onset Age: 40 Other No family history of cardiovascular disease Social History Social History (Updated 01/20/22 @ 09:38 by Lynda Cárdenas PA-C) Social History: Ms. Eduoard lives at home with her . She is independent in her daily activities. She is retired. Her PCP is Dr. Oglesby. She designates her , Robert, as her surrogate decision maker. She is a DNR. Smoking status: Never smoker Second hand tobacco smoke exposure: No Alcohol intake: never Substance use: never Substance use type: does not use Living arrangements: with family Occupation/Education: retired Spiritual care concerns: No Meds Home Medications and Allergies Home Medications Medication Instructions Recorded Confirmed Type tramadol 50 mg tablet 50 mg PO Q6H PRN pain #60 tabs 08/11/21 01/19/22 Rx empagliflozin 25 mg tablet 25 mg PO QAM #90 tabs 11/11/21 01/19/22 Rx (Jardiance) acetaminophen 500 mg tablet 1,000 mg PO Q6H PRN Pain 11/23/21 01/19/22 History (Tylenol Extra Strength) ferrous sulfate 325 mg (65 mg 325 mg PO BID 11/23/21 01/19/22 History iron) tablet
--- NOTE | 2022-01-20 09:48 | PM.DS ---
DS: Admitting Diagnosis Discharge Date 01/20/22 Admitting Diagnosis OA Left hip DS: Discharge Diagnosis Discharge Diagnosis Plan Postop day 1: Total hip arthroplasty. Patient tolerated procedure well. No complications. Pain manageable with pain medication. No numbness or tingling. We had a lengthy discussion regarding postoperative wound care, limitations, expectations, and exercises. Patient shows good understanding. Patient has had initial physical therapy and is tolerating it well. DVT prophylaxis: 81 mg baby aspirin b.i.d. for 14 days. Short frequent walks. Pain medication: Percocet. Ibuprofen. Patient has followup appointment with Dr. Ash in 3 weeks DS: Summary Hospital Course Reason for hospitalization: Total hip arthroplasty Hospital Course: Patient tolerated procedure well. Has had initial PT/OT. Status at Discharge Functional status at discharge: uses cane/walker Overall status at discharge: patient is progressing back to baseline Time Spent with Patient Time attestation: Total time spent providing and/or coordinating discharge services: Exam Narrative: Overweight 61 y/o female. Resting comfortably in chair. Wearing compression socks bilaterally. Dressing dry and intact with no drainage. Moderate swelling. No ecchymosis. No erythema. No hematoma. Range of motion limited due to pain. Calf nontender. Thigh nontender. Neurologic status intact. No varicosities. Distal pulses palpable. DS: Data Data Completed and Pending Labs on day of discharge: Labs from last 24 hours 01/20/22 01/20/22 01/19/22 07:32 02:35 16:32 POC Capillary Glucose 190 H 164 H 192 H Blood Type Antibody Screen 01/19/22 01/19/22 12:20 08:45 POC Capillary Glucose 147 H Blood Type B Positive Antibody Screen Negative Discharge Plan Discharge Patient Disposition: Home, Self-Care Discharge Instructions: See green instruction sheet Stand Alone Forms: General Discharge Instructions Follow-up/Referrals: Annelise Nassar PA [Physician Jukebox Operator] - Discharge Medications: New aspirin 81 mg tablet,delayed release (DR/EC) 81 mg PO BID 14 Days Qty: 28 0RF oxycodone-acetaminophen 5-325 mg tablet 1 - 2 tablet PO Q4-6H MDD 6 PRN (Reason: pain) Qty: 30 0RF Continued pyridoxine (vitamin B6) 100 mg tablet 100 mg PO QACDINNER magnesium 250 mg tablet 500 mg PO QAM ferrous sulfate 325 mg (65 mg iron) tablet 325 mg PO BID vitamin B complex [B Complex-Vitamin B12] Tablet 1 tablet PO QACDINNER ibuprofen [Advil] 200 mg tablet 800 mg PO HS PRN (Reason: Pain) acetaminophen [Tylenol Extra Strength] 500 mg tablet 1,000 mg PO Q6H PRN (Reason: Pain) quinapril 40 mg tablet 40 mg PO QAM Rx Instructions: TAKE 1 TABLET BY MOUTH EVERY DAY hydrochlorothiazide 12.5 mg capsule 12.5 mg PO QAM Rx Instructions: TAKE 1 CAPSULE BY MOUTH EVERY DAY insulin glargine-yfgn [Semglee(insulin glarg-yfgn)Pen] 100 unit/mL (3 mL) insulin pen 94 unit subcut QPM benzonatate 200 mg capsule 200 mg PO TID PRN (Reason: Cough) atorvastatin 20 mg tablet 20 mg PO HS Rx Instructions: TAKE 1 TABLET BY MOUTH EVERY DAY glyburide 5 mg tablet 10 mg PO BID Rx Instructions: TAKE 2 TABLETS BY MOUTH TWICE A DAY metoprolol succinate 50 mg tablet extended release 24 hr 50 mg PO QAM Rx Instructions: TAKE 1 TABLET BY MOUTH EVERY DAY metformin 500 mg tablet extended release 24 hr 1,000 mg PO BID Rx Instructions: TAKE TWO TABLETS BY MOUTH TWICE DAILY calcium carbonate-vitamin D3 500 mg-2.5 mcg (100 unit) tablet,chewable 1 tablet PO BID Rx Instructions: TAKE 1 TABLET BY MOUTH TWICE A DAY cholecalciferol (vitamin D3) 50 mcg (2,000 unit) tablet 50 mcg PO QACDINNER Rx Instructions: TAKE ONE TABLET BY MOUTH ONCE DAILY tramadol 50 mg tablet 50 mg PO Q6
== END 2022-01-20 11:52 | disposition home or self-care (01) ==
LOC: ANHSURGERY 10:15 → ANH2MED 14:02
PROVIDERS: PCP Family Medicine; Visit Provider Orthopaedic Surgery
PROC: (CPT 27130; principal; 2022-01-19 10:30)
DX: M17.12 Unilateral primary osteoarthritis, left knee (principal); I10 Essential (primary) hypertension; E78.2 Mixed hyperlipidemia; R79.89 Other specified abnormal findings of blood chemistry; E11.65 Type 2 diabetes mellitus with hyperglycemia; E66.9 Obesity, unspecified; Z68.39 Body mass index [BMI] 39.0-39.9, adult
CPT/HCPCS: 27130; 36415; 73502; 80048; 80307; 82040; 82948; 83036; 85025; 86850; 86900; 86901; 87081; 97110; 97116; 97161; 97165; 97530; 97535; A9270; C1776; J0131; J0171; J0330; J0690; J1170; J1815; J1885; J2250; J2270; J2405; J2704; J2795; J3010; J7030; J7120

== ENCOUNTER 2022-05-28 08:58 | Outpatient (CLI) | payer OTHER, SELFPAY ==
--- NOTE | ~2022-05-28 | MM_ITS ---
EXAMINATION: MM screening [facility] HISTORY: Screening mammogram TECHNIQUE: Craniocaudal and mediolateral oblique 3-D tomosynthesis images were obtained and synthetic 2-D images were generated. CAD analysis was submitted and interpreted. COMPARISON: 02/13/2021, 03/20/2019, 03/09/2019, 02/24/2018 BREAST PARENCHYMAL COMPOSITION: The breasts are almost entirely fatty. FINDINGS: Again seen is a stable mass in the middle third of the lower right breast. No suspicious ma ss, calcification, or architectural distortion are identified in either breast to suggest malignancy. There has been no suspicious interval change. IMPRESSION: 1. No mammographic evidence of malignancy. 2. Recommend routine screening mammography in one year. BI-RADS Category 2: Benign finding(s). Reviewed, dictated and finalized at location A.
== END 2022-05-28 08:59 | disposition home or self-care (01) ==
LOC: ANHIMG 09:00
PROVIDERS: PCP Emergency Medicine; Visit Provider Physician Assistant
DX: Z12.31 Encounter for screening mammogram for malignant neoplasm of breast (principal)
CPT/HCPCS: 77063; 77067

== ENCOUNTER 2023-03-26 09:15 | Emergency (ER) | payer OTHER, SELFPAY ==
--- NOTE | 2023-03-26 09:19 | ED.EAR ---
HPI - Ear Problem General Chief complaint: Ear Stated complaint: lt earache Time Seen by Provider: 03/26/23 09:18 Source: patient Mode of arrival: ambulatory Limitations: no limitations History of Present Illness HPI Narrative: Georgette is a 63-year-old female patient presenting to the clinic today with complaints of left ear pain and sore throat since Tuesday. She reports sore throat has gradually gotten worse over the last week and she started to develop some ear pain over the last 1-2 days. Her voice is muffled and very painful to swallow. No difficulty breathing or drooling. Related Data Home Medications Medication Instructions Recorded Confirmed cholecalciferol (vitamin D3) 50 50 mcg PO QACDINNER 12/08/21 03/26/23 mcg (2,000 unit) tablet Allergies Allergy/AdvReac Type Severity Reaction Status Date / Time indapamide Allergy Unknown elevated Verified 03/26/23 10:53 liver Review of Systems Review of Systems: Pertinent positives per HPI. Patient denies any fever, chills, rash, headache, visual changes, dizziness, cough, runny nose, shortness of breath, chest pain, palpitations, nausea, vomiting, diarrhea, constipation, abdominal pain, or any urinary issues. [facility] Past Medical History Medical History DM w/o complication type II, uncontrolled Elevated LFTs Essential (primary) hypertension Mixed hyperlipidemia Obesity, unspecified Osteoarthritis of left hip Post menopausal syndrome Surgical History Surgical History History of left hip replacement (~01/19/22) Hx of arthroscopy of knee (~10/1999) Left Hx of arthroscopy of knee (~11/2006) Right Family History Family History Mother Diabetes mellitus Father Hypertension Family history of Parkinson's disease Heart disease Parkinson disease Grandparent Hypertension Carcinoma of colon Sibling Hypertension Family history of cardiovascular disease Acute myocardial infarction, Onset Age: 40 Other No family history of cardiovascular disease Social History Social History Social History: Ms. Edouard lives at home with her . She is independent in her daily activities. She is retired. Her PCP is Dr. Gooden. She designates her , Robert, as her surrogate decision maker. She is a DNR. Smoking status: Never smoker Second hand tobacco smoke exposure: No Alcohol intake: never Substance use: never Substance use type: does not use Lack of Transportation: No Lack of Food: Never True Current Housing: I Have Housing Concerned About Future Housing: No Difficulty Paying Gas/Electric Bills: No Difficulty Paying for Meds: No Currently Unemployed: No Education: Master's Degree or Higher Difficulty w/ Childcare or Family Care: No Living arrangements: with family Occupation/Education: retired Spiritual care concerns: No Comments At the time of my signature, I reviewed and agree with the nursing past medical, surgical, social, and family history. There is no relevant family history pertinent to the patient complaint. Exam Narrative: General: Well-developed, well nourished, in no apparent distress Head: Normocephalic, atraumatic Eyes: Pupils equally round and reactive to light bilaterally, EOM intact, sclera and conjunctive clear, no discharge, lids normal Ears: TMs intact and clear, ear canals ceruminous, no drainage, grossly hearing normal. Nose: Nares patent, no discharge, no inflammation, no sinus tenderness. Mouth: Oropharynx red and very swollen with uvula deviation to the left with suspected left peritonsillar abscess, MMM. Mallampati score 3 Neck: Supple, trachea midline, positive enlargement of left anterior cervical nodes, left side of neck swell
[2023-03-26 09:27] VITALS: BP 151/61; PULSE 80; RESP 18; TEMP 36.3; O2SAT 99
== END 2023-03-26 10:06 | disposition short-term general hospital (02) ==
PROVIDERS: Emergency Provider Nurse Practitioner Family; PCP Emergency Medicine
DX: J36 Peritonsillar abscess (principal); E11.9 Type 2 diabetes mellitus without complications; I10 Essential (primary) hypertension; E78.2 Mixed hyperlipidemia; E66.9 Obesity, unspecified; Z68.45 Body mass index [BMI] 70 or greater, adult; M16.12 Unilateral primary osteoarthritis, left hip; Z96.642 Presence of left artificial hip joint
CPT/HCPCS: 99212; G0463

== ENCOUNTER 2023-03-26 10:37 | Emergency (ER) | payer OTHER, SELFPAY ==
--- NOTE | ~2023-03-26 | CT_ITS ---
EXAMINATION: CT soft tissue neck w con DATE: 03/26/2023 12:02 INDICATION: Peritonsillar abscess with one week of sore throat TECHNIQUE: Computed tomography (CT) of the neck was performed with 75 mL Omnipaque-350 intravenous co ntrast. Automated exposure control and iterative reconstruction technique were employed. The dose-apollo gth product was 547.81 mGy-cm. COMPARISON: None FINDINGS: Left parapharyngeal soft tissue swelling with 1.9 x 1.3 x 1.8 cm low-attenuation peripherally enhanci ng abscess in the left lingual tonsil with irregular lobular margins. This along with soft tissue swe lling of the left palatine tonsil results in leftward deviation of the edematous-appearing uvula. Nor mal epiglottis and aryepiglottic folds. No evident involvement of the retropharyngeal space. Mildly e nlarged left jugular chain and posterior cervical triangle lymph nodes which are likely reactive. Mul tinodular goiter with coarse calcifications within bilateral thyroid nodules. Atherosclerotic calcifi cations without hemodynamically significant stenosis at the bilateral carotid bulbs. Visualized apice s of the lungs are clear. Moderate cervical spondylosis. The orbits, paranasal sinuses and mastoid ai r cells are normal.. IMPRESSION: 1. Pharyngitis/tonsillitis with 1.9 x 1.3 x 1.8 cm left tonsillar abscess. 2. Multinodular goiter. Would consider follow-up thyroid ultrasound for risk stratification. Reviewed, dictated and finalized at location A. IMPRESSION: 1. Pharyngitis/tonsillitis with 1.9 x 1.3 x 1.8 cm left tonsillar abscess. 2. Multinodular goiter. Would consider follow-up thyroid ultrasound for risk st ratification.
[2023-03-26 10:38] VITALS: BP 157/72; PULSE 80; RESP 16; TEMP 36.5; O2SAT 100
[2023-03-26 10:54] VITALS: O2SAT 100
[2023-03-26 11:14] LABS: Basophils Percent Auto 0.3 % (0.2-1.2); Eosinophils Absolute Auto 0.1 K/mm3 (0-0.3); Eosinophils Percent Auto 0.5 % (0-4.4); Hematocrit 37.4 % (37.0-47.0); Hemoglobin 12.4 g/dL (12.0-15.0); Immature Granulocyte Absolute 0.04 K/mm3 (0.00-0.031); Immature Granulocyte Percent A 0.4 % (0-0.5); Lymphocytes Absolute Auto 1.47 K/mm3 (0.9-3.2); Lymphocytes Percent Auto 15.3 % (18.3-44.2); Mean Corpuscular HGB Conc 33.2 g/dl (32-36); Mean Corpuscular Hemoglobin 30.2 pg (26-34); Mean Platelet Volume 8.6 fl (7.4-10.4); Monocytes Absolute Auto 0.6 K/mm3 (0.1-0.6); Monocytes Percent Auto 6.5 % (2.6-8.5); Neutrophils Absolute Auto 7.4 K/mm3 (1.3-6.7); Platelet Count Result 170 k/mm3 (150-375); Red Blood Count 4.11 M/mm3 (4.2-5.4); Red Cell Distribution Width 14.5 % (11.5-14.5); White Blood Count 9.6 K/mm3 (4.5-10.0)
[2023-03-26 11:22] VITALS: BP 143/63; PULSE 77; RESP 20; O2SAT 96
[2023-03-26 11:24] LABS: Anion Gap 8 mmol/L (8-16); Blood Urea Nitrogen 19 mg/dL (7-17); Calcium 9.7 mg/dL (8.4-10.2); Carbon Dioxide 26 mmol/L (22-30); Chloride 106 mmol/L (98-107); Estimated CRCL calculation 68 ml/min; Estimated Glomerular Filt Rate > 60; Glucose 121 mg/dL (65-110); Sodium 140 mmol/L (137-145)
[2023-03-26 11:28] LABS: CRP 5.5 mg/dL (<1.0)
[2023-03-26 11:37] LABS: Erythrocyte Sedimentation Rate 95 mm/hr (0-20)
--- NOTE | 2023-03-26 11:43 | ED.URI ---
HPI - URI/Sore Throat General Chief Complaint: Upper Respiratory Infection <Christine Francisco PA-C - Last Filed: 03/26/23 15:32> Stated Complaint: L TONSILLAR SWELLING,ST <ROLANDO Alcaraz Last Filed: 03/26/23 15:32> Time Seen by Provider: 03/26/23 10:52 <ROLANDO Alcaraz Last Filed: 03/26/23 15:32> Source: patient <ROLANDO Alcaraz Last Filed: 03/26/23 15:32> Mode of arrival: ambulatory <ROLANDO Alcaraz Last Filed: 03/26/23 15:32> Limitations: no limitations <ROLANDO Alcaraz Last Filed: 03/26/23 15:32> History of Present Illness HPI Narrative: This is a 63 year old female that presents to the ER for sore throat ongoing over the last 6 days. Also reports left ear pain. Was evaluated at urgent care and sent to the ER for a possible peritonsillar abscess. Denies fever, cough or shortness of breath. <ROLANDO Alcaraz Last Filed: 03/26/23 15:32> Related Data Home Medications: Home Medications Medication Instructions Recorded Confirmed cholecalciferol (vitamin D3) 50 50 mcg PO QACDINNER 12/08/21 03/26/23 mcg (2,000 unit) tablet <ROLANDO Alcaraz Last Filed: 03/26/23 15:32> Allergies/Adverse Reactions: Allergies Allergy/AdvReac Type Severity Reaction Status Date / Time indapamide Allergy Unknown elevated Verified 03/26/23 10:53 liver <ROLANDO Alcaraz Last Filed: 03/26/23 15:32> Review of Systems Review of Systems: CONSTITUTIONAL: Denies fever ENT: Reports sore throat, and otalgia. RESPIRATORY: Denies cough <ROLANDO Alcaraz Last Filed: 03/26/23 15:32> All systems reviewed & are unremarkable except as noted in HPI and below <ROLANDO Alcaraz Last Filed: 03/26/23 15:32> [facility] Past Medical History Medical History: Medical History DM w/o complication type II, uncontrolled Elevated LFTs Essential (primary) hypertension Mixed hyperlipidemia Obesity, unspecified Osteoarthritis of left hip Post menopausal syndrome <ROLANDO Alcaraz Last Filed: 03/26/23 15:32> Surgical History Surgical History: Surgical History History of left hip replacement (~01/19/22) Hx of arthroscopy of knee (~10/1999) Left Hx of arthroscopy of knee (~11/2006) Right <ROLANDO Alcaraz Last Filed: 03/26/23 15:32> Family History Family History: Family History Mother Diabetes mellitus Father Hypertension Family history of Parkinson's disease Heart disease Parkinson disease Grandparent Hypertension Carcinoma of colon Sibling Hypertension Family history of cardiovascular disease Acute myocardial infarction, Onset Age: 40 Other No family history of cardiovascular disease <ROLANDO Alcaraz Last Filed: 03/26/23 15:32> Social History Social History: Social History Social History: Ms. Edouard lives at home with her . She is independent in her daily activities. She is retired. Her PCP is Dr. Gooden. She designates her , Robert, as her surrogate decision maker. She is a DNR. Smoking status: Never smoker Second hand tobacco smoke exposure: No Alcohol intake: never Substance use: never Substance use type: does not use Lack of Transportation: No Lack of Food: Never True Current Housing: I Have Housing Concerned About Future Housing: No Difficulty Paying Gas/Electric Bills: No Difficulty Paying for Meds: No Currently Unemployed: No Education: Master's Degree or Higher Difficulty w/ Childcare or Family Care: No Living arrangements: with family Occupation/Education: retired Spiritual care concerns: No <ROLANDO Alcaraz Last Filed: 03/26/23 15:32> E
[2023-03-26 13:24] LABS: Glucose Point of Care 51 mg/dl (65-105)
[2023-03-26] MEDS: DEXTROSE 50% 25 GM/50 ML SYRINGE IV PUSH (13:33)
[2023-03-26 13:38] LABS: Strep Group A RT-PCR NOT DETECTED (Negative)
[2023-03-26] MEDS: AMPICILLIN SULB 3 GM/NS 100 ML 3 GM/100 ML VIAL IVPB (13:41)
[2023-03-26 14:04] LABS: Glucose Point of Care 121 mg/dl (65-105)
[2023-03-26 14:16] VITALS: BP 131/62; PULSE 71; RESP 20; O2SAT 98
[2023-03-26 14:42] VITALS: BP 131/59; PULSE 78; RESP 18; O2SAT 99
== END 2023-03-26 14:44 | disposition short-term general hospital (02) ==
PROVIDERS: Emergency Provider Physician Assistant; PCP Emergency Medicine
DX: J36 Peritonsillar abscess (principal); E04.2 Nontoxic multinodular goiter; E11.649 Type 2 diabetes mellitus with hypoglycemia without coma; I10 Essential (primary) hypertension; E78.2 Mixed hyperlipidemia; E66.9 Obesity, unspecified; Z68.35 Body mass index [BMI] 35.0-35.9, adult; M16.12 Unilateral primary osteoarthritis, left hip; Z96.642 Presence of left artificial hip joint; Z66 Do not resuscitate; Z79.84 Long term (current) use of oral hypoglycemic drugs; Z79.4 Long term (current) use of insulin
CPT/HCPCS: 36415; 70491; 80048; 82948; 85025; 85652; 86140; 87651; 96365; 96375; 99285; J0295; J1100; Q9967

== ENCOUNTER 2023-04-18 07:10 | Outpatient (CLI) | payer OTHER, SELFPAY ==
--- NOTE | ~2023-04-18 | XR_ITS ---
Right Knee Technique: AP, lateral, and sunrise views were obtained. Clinical History: Osteoarthritis Findings: No fracture or dislocation is seen. There is moderate tricompartmental osteoarthritis, with prominent tricompartmental osteophyte formation. Probable mild tricompartmental joint space narrowin g. Soft tissues are unremarkable. No joint effusion is seen. Impression: Moderate tricompartmental osteoarthritis. Reviewed, dictated and finalized at location M. Impression: Moderate tricompartmental osteoarthritis.
== END 2023-04-18 07:11 | disposition home or self-care (01) ==
LOC: ANHIMG 07:13
PROVIDERS: PCP Emergency Medicine; Visit Provider Orthopaedic Surgery
DX: M17.11 Unilateral primary osteoarthritis, right knee (principal)
CPT/HCPCS: 73564

== ENCOUNTER 2023-06-20 07:18 | Outpatient (RCR) | payer OTHER, SELFPAY ==
[2023-06-20 07:55] VITALS: BMI 39.3
== END 2023-09-05 08:36 | disposition home or self-care (01) ==
LOC: ANHWOC 07:18
PROVIDERS: PCP Emergency Medicine; Visit Provider Physician Assistant
DX: L97.229 Non-pressure chronic ulcer of left calf with unspecified severity (principal)
CPT/HCPCS: 99213; G0463

== ENCOUNTER 2023-07-11 07:11 | Outpatient (CLI) | payer OTHER, SELFPAY ==
--- NOTE | ~2023-07-11 | MM_ITS ---
EXAMINATION: MM screening [facility] HISTORY: Screening mammogram TECHNIQUE: Craniocaudal and mediolateral oblique 3-D tomosynthesis images were obtained and synthetic 2-D images were generated. CAD analysis was submitted and interpreted. COMPARISON: 05/28/2022, 02/13/2021 bilateral screening mammogram examinations 03/20/2019 diagnostic right mammogram and limited right breast ultrasound: 6:00 5 mm right breast simp le cyst was reported 03/09/2019 bilateral screening mammogram BREAST PARENCHYMAL COMPOSITION: There are scattered areas of fibroglandular density. FINDINGS: Stable circumscribed 5 mm opacity lower mid right breast, previously documented a simple cy st on 03/20/2019 limited breast ultrasound examination. Low-density circumscribed approximately 3.2 x 3.7 mm opacity is noted at approximately 6:00 position of the left breast, benign in appearance. There is no evidence of suspicious mass, calcification, or architectural distortion to suggest malign machelle in either breast. There has been no suspicious interval change. IMPRESSION: 1. Stable right breast benign finding. No mammographic evidence of malignancy. 2. Recommend routine screening mammography in one year. BI-RADS Category 2: Benign finding(s). Reviewed, dictated and finalized at location A. RA SYSTEMS ENGINEER
== END 2023-07-11 07:12 | disposition home or self-care (01) ==
LOC: CHSIMG 07:12
PROVIDERS: PCP Emergency Medicine; Visit Provider Physician Assistant
DX: Z12.31 Encounter for screening mammogram for malignant neoplasm of breast (principal)
CPT/HCPCS: 77063; 77067

== ENCOUNTER 2023-12-08 09:41 | Outpatient (CLI) | payer OTHER, SELFPAY ==
--- NOTE | ~2023-12-08 | XR_ITS ---
Left Shoulder Technique: AP and scapular Y views were obtained. Clinical History: Pain Findings: No fracture or dislocation is seen. Osseous alignment is anatomic. There is mild AC joint d egenerative change. Glenohumeral joint intact. Soft tissues are unremarkable. Impression: . Mild AC joint degenerative change. Reviewed, dictated and finalized at location . Impression: . Mild AC joint degenerative change.
--- NOTE | ~2023-12-08 | XR_ITS ---
Right Shoulder Technique: AP and scapular Y views were obtained. Clinical History: Pain Findings: No fracture or dislocation is seen. Osseous alignment is anatomic. The glenohumeral joint i s intact. There is mild AC joint degenerative change. There is probable calcific tendinitis at the ro tator cuff insertion.. Impression: Probable calcific tendinitis of the rotator cuff insertion. Mild AC joint degenerative change. Reviewed, dictated and finalized at location . Impression: Probable calcific tendinitis of the rotator cuff insertion. Mild AC joint degenerative change.
== END 2023-12-08 09:42 ==
PROVIDERS: PCP Emergency Medicine; Visit Provider Emergency Medicine
DX: M25.512 Pain in left shoulder (principal); M25.511 Pain in right shoulder
CPT/HCPCS: 73030

== ENCOUNTER 2024-10-29 08:08 | Outpatient (CLI) | payer MEDICARE, SELFPAY ==
--- NOTE | ~2024-10-29 | MM_ITS ---
EXAMINATION: MM screening [facility] HISTORY: Screening mammogram TECHNIQUE: Craniocaudal and mediolateral oblique 3-D tomosynthesis images were obtained and synthetic 2-D images were generated. CAD analysis was submitted and interpreted. COMPARISON: 07/11/2023, 05/28/2022, 02/13/2021, 03/20/2019 BREAST PARENCHYMAL COMPOSITION:Not Dense. The breasts are almost entirely fatty FINDINGS: No suspicious mass, calcification, or architectural distortion are identified in either richard ast to suggest malignancy. There has been no suspicious interval change. IMPRESSION: No mammographic evidence of malignancy. Recommend routine screening mammography in one year. BI-RADS Category 1: Negative Reviewed, dictated and finalized at location .
--- OUTSIDE RECORDS SUMMARY | 2024-10-29 08:20 | XMS_ITS | Referral Summary ---
Author Organization [facility] [address] Address [address] [place] [address] Care Team Providers Care Gambling Box Person Name Role Phone Samir Gooden MD Primary Care Provider [phone] Allergies No known active allergies Medications atorvastatin (LIPITOR) 20 mg tablet 10/22/2021 Active calcium carbonate (TUMS) 500 mg (200 mg elemental) chewable tablet 08/27/2021 Act jose d cholecalciferol (VITAMIN D-3) 2000 unit tablet 08/25/2021 Active glyBURIDE (DIABETA) 5 mg tablet 10/15/2021 Active Semglee,insulin glarg-yfgn,Pen 100 unit/mL (3 mL) pen for injection 09/29/2021 Active metFORMIN XR (GLUCOPHAGE XR) 500 mg 24 hr tablet 10/22/2021 Active metoprolol XL (TOPROL-XL) 50 mg extended release tablet Take 1 tablet (50 mg total) by mouth every morning 04/26/2023 Active lisinopriL (PRINIVIL,ZESTR IL) 40 mg tablet Take 1 tablet (40 mg total) by mouth daily 03/10/2023 Active Active Problems Patient Care Coordination No te Formatting of this note migh t be different from the original. Tonsils Problem Noted Date Diagnosed Date Class 2 severe obesity due t o excess calories with serious comorbidity and body mass index (BMI) of 37.0 to 37.9 in adult 05/13/2023 Hypertension associated with diabetes 11/06/2021 Preoperative cardiovascular examination 11/07/19 Mixed diabetic hyperlipidemi a associated with type 2 diabetes mellitus 11/06/2021 Abnormal EKG 11/06/2021 Social History Tobacco Use Types Packs/Day Years Used Date Smoking Tobacco: Never Smokeless Tobacco: Never Personal Safety Answer Date Recorded Getting School Help Needed Not on file 04/14 Comments Unknown Sex and Gender Information Value Date Recorded Sex Assigned at Not on file 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 Gender Identity Not on file Sexual Orientation Not on file Last Filed Vital Signs Vital Sign Reading Time Taken Comments Blood Pressure 118/72 05/13/2023 9:08 AM CDT Pulse 80 05/13/2023 9:08 AM CDT Temperature 36.4 C (97.6 F) 03/26/2023 3:17 PM CDT Respiratory Rate 18 03/26/2023 3:17 PM CDT Oxygen Saturation 99% 05/13/2023 9:08 AM CDT Inhaled Oxygen Concentration - - Weight 105.2 kg (232 lb) 05/13/2023 9:08 AM CDT Height 167.6 cm (5' 6 ) 05/13/2023 9:08 AM CDT Body Mass Index 37.45 05/13/2023 9:08 AM CDT Plan of Treatment Not on file Procedures Procedure Name Priority Date/Time Associated Diagnosis Comments POCT LIPID PANEL Routine 05/13/2023 3:05 PM CDT Mixed diabetic hyperlipidemia associated with type 2 diabetes mellitus (HCC) from Last 3 Months or Most Recently Relevant to Health Maintenance Results * POCT lipid panel (05/13/2023 3:05 PM CDT) Cholesterol, POC 130 mg/dL Comment:GLU = 160 HDL, POC 26 mg/dL Triglycerides, POC 168 mg/dL LDL Cholesterol POC 71 mg/dL Chol/HDL Ratio, POC 2.7 Non-HDL Cholesterol, POC 104 mg/dL Cholesterol Total, POC 130 mg/dL Capillary blood 05/13/2023 3 :05 PM CDT Naldo Higginbotham MD POINT OF CARE TEST ORDER [place] Final Result from Last 3 Months or Most Recently Relevant to Health Maintenance Insurance [facility]/PPO Address: [id number] [place] [id number] [facility]/PPO Address: [address] [address] [place] [address] [facility]/PPO Address: [address] [place] [address] Care Teams Gambling Box Person Relationship Specialty Start Date End Date Samir Gooden MD [address] [place] [address] [place] [address] PCP - General Family Medicine 05/13/23
--- OUTSIDE RECORDS SUMMARY | 2024-10-29 08:20 | XMS_ITS | Clinical Summary ---
Author Organization [facility] [place] [address] Address [address] [place] [address] Care Team Providers Care Dust Control Engineer Name Role Phone Samir Gooden MD Primary Care Provider [phone] Allergies No known active allergies Medications atorvastatin [...] 2 diabetes mellitus 11/06/2021 Abnormal EKG 11/06/2021 Medical History Medical History Date Comments Hypertension Hyperlipidemia Diabetes mellitus (HCC) Family History Medical History Relation Name Comments Heart disease Brother Heart disease Father Heart disease Mother Relation Name Status Comments Brother Father Mother Social History Tobacco Use Types Packs/Day Years Used Date Smoking Tobacco: Never Smokeless Tobacco: Never Personal Safety Answer Date Recorded Getting School Help Needed Not on file 04/14 Comments Unknown Sex and Gender Information Value Date Recorded Sex Assigned at Not on file 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 Gender Identity Not on file Sexual Orientation Not on file Obstetrics History Last Filed Vital Signs Vital Sign Reading [...] 05/13/2023 9:08 AM CDT Plan of Treatment Health Maintenance Due Date Last Done Comments Albumin Creatinine Ratio, Urine 1959 Breast Cancer Screening-Mammogram 1959 Cervical Cancer Screening 1959 Colon Cancer Screening-Colonoscopy 1959 Depression Screening 1959 Fall Risk Assessment 1959 Hemoglobin A1C 1959 Hepatitis C Screening 1959 Osteoporosis Screening-Bone Density Scan 1959 eGFR 1959 Dilated Eye Exam 1959 Foot Exam 1959 DTaP/Tdap/Td Vaccine (1 - Tdap) 1970 Hepatitis B Screening 1977 Zoster Vaccine (1 of 2) 2009 Pneumococcal vaccine 65+ (2 of 2 - PCV) 12/27/2020 12/28/2019 Well Visit 65+ 02/26/2024 Covid-19 Vaccine (4 - 2024-25 season) 2024 06/05/2021, 11/24/2020, 11/03/2020 Lipid Panel 05/13/2024 05/13/2023, 11/06/2021 Influenza Vaccine Completed 06/05/2024, 06/06/2018 Procedures Procedure Name Priority Date/Time Associated Diagnosis [...] Most Recently Relevant to Health Maintenance Insurance [facility] Care Teams Dust Control Engineer Relationship Specialty Start Date End Date Samir Gooden MD [address] [place] [address] [place] [address] PCP - General Family Medicine 05/13/23
== END 2024-10-29 08:09 | disposition home or self-care (01) ==
LOC: CHSIMG 08:10
PROVIDERS: PCP Clinical Nurse Specialist; Visit Provider Clinical Nurse Specialist
DX: Z12.31 Encounter for screening mammogram for malignant neoplasm of breast (principal)
CPT/HCPCS: 77063; 77067

== ENCOUNTER 2024-11-04 08:45 | Emergency (ER) | payer MEDICARE, SELFPAY ==
--- OUTSIDE RECORDS SUMMARY | 2024-11-04 08:47 | XMS_ITS | Referral Summary ---
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
--- OUTSIDE RECORDS SUMMARY | 2024-11-04 08:47 | XMS_ITS | Clinical Summary ---
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
[2024-11-04 09:00] VITALS: BP 147/57; PULSE 89; RESP 16; TEMP 37.3; O2SAT 95
[2024-11-04 09:17] LABS: EDCOVIDSCREEN Negative (Negative); EDINFLUASCREEN Positive (Negative); EDINFLUBSCREEN Negative (Negative)
--- NOTE | 2024-11-04 09:18 | ED.URI ---
HPI - URI/Sore Throat General Chief Complaint: Upper Respiratory Infection Stated Complaint: cough Time Seen by Provider: 11/04/24 09:09 Source: patient and RN notes reviewed Mode of arrival: ambulatory Limitations: no limitations History of Present Illness HPI Narrative: Patient presents today complaining of 3 day history of dry cough that has been worsening since onset, left ear pain, headache. Denies fever or shortness of breath. She has been taking Tylenol, Claritin, and Delsym with some relief. Denies history of asthma or COPD. Related Data Home Medications ?Medication ?Instructions ?Recorded ?Confirmed ?Last Taken ?Type magnesium oxide 400 mg PO DAILY 08/04/23 10/08/24 Unknown History vitamin B complex (B 1 tablet PO DAILY 08/04/23 10/08/24 Unknown History Complex-Vitamin B12 tablet) ferrous sulfate 325 mg (65 mg 325 mg PO BID 03/02/24 10/08/24 Unknown History iron) tablet mecobalamin (vitamin B12) 1,000 1,000 mcg PO DAILY 03/02/24 10/08/24 Unknown History mcg lozenges pyridoxine (vitamin B6) 100 mg/2.5 mg PO 03/02/24 10/08/24 Unknown History mL oral liquid calcium 600 mg (as carbonate)-vit 1 tablet PO DAILY 10/08/24 10/08/24 Unknown History D3 20 mcg (800 unit) chewable tablet (Caltrate plus D) insulin glargine U-300 conc 300 112 unit subcut DAILY 10/08/24 10/08/24 Unknown History unit/mL (3 mL) subcutaneous pen (Toujeo Max U-300 SoloStar) loratadine 10 mg tablet (Claritin) 10 mg PO DAILY 10/08/24 10/08/24 Unknown History Allergies Allergy/AdvReac Type Severity Reaction Status Date / Time indapamide Allergy Unknown elevated Verified 11/04/24 08:57 liver Review of Systems Review of Systems: CONSTITUTIONAL: Denies body aches, fever, chills, or sweats. EYES: Denies visual changes, redness, or discharge. ENT: Denies rhinorrhea, congestion, sore throat. + left ear pain CARDIOVASCULAR: Denies chest pain, palpitations, or edema. RESPIRATORY: Denies dyspnea.+ cough GASTROINTESTINAL: Denies abdominal pain, nausea, vomiting, or diarrhea. GENITOURINARY: Denies dysuria or hematuria. SKIN: Denies rash, itching, or wounds. MUSCULOSKELETAL: Denies back pain, joint pain, or myalgia. NEUROLOGIC: Denies numbness, tingling, or weakness.+ headache PSYCH: Denies depression or anxiety. [facility] Past Medical History Medical History Abscess of chest wall Ulcer of left calf Bilateral shoulder pain Arthritis of left hip Hip pain Orthopedic aftercare for joint replacement Right knee DJD Frozen shoulder Finger pain, right Osteoarthritis of left hip DM w/o complication type II, uncontrolled Elevated LFTs Essential (primary) hypertension Mixed hyperlipidemia Obesity, unspecified Post menopausal syndrome Surgical History Surgical History Status post left hip replacement History of left hip replacement (~01/19/22) Hx of arthroscopy of knee (~11/2006) Right Hx of arthroscopy of knee (~10/1999) Left Family History Family History Mother Diabetes mellitus Father Hypertension Family history of Parkinson's disease Heart disease Parkinson disease Grandparent Hypertension Carcinoma of colon Sibling Hypertension Family history of cardiovascular disease Acute myocardial infarction, Onset Age: 40 CAD (coronary artery disease) Peripheral vascular disease Other No family history of cardiovascular disease Social History Social History Social History: Ms. Edouard lives at home with her . She is independent in her daily activities. She is retired. She designates her , Robert, as her surrogate decision maker. She is a DNR. Caffeine- diet soda Smoking status: Never smoker Second hand tobacco smoke exposure: No Alcohol intake: never Substance use: never Substance use type: does not use Do You Feel Safe in your Home?: Yes Lack of Transportation: No Lack of Food: Never True Current Housing: I Have Housing Concerned About Future Housing: No Difficulty Paying Gas/Electric Bills: No Difficulty Paying for Meds: No Currently Unemployed: No Education: Master's Degree or Higher Difficulty w/ Childcare or Family Care: No Living arrangements: with family Occupation/Education: retired Spiritual care concerns: No Comments At time of signature, I have reviewed and agree with nursing past medical, surgical, social and family history unless otherwise noted. Please see nursing chart for further information. There is no relevant family history pertinent to the presenting complaint Exam Narrative: GENERAL: Mildly ill-appearing, well-nourished, and in no acute distress. HEAD: Normocephalic, atraumatic. EYES: EOMI. No redness or drainage. Conjunctivae normal. ENT: Mucous membranes pink and moist. Nares congested with rhinorrhea. TMs normal bilaterally. Throat normal. Uvula midline. NECK: Normal AROM. Supple. No lymphadenopathy. CHEST: No respiratory distress. Clear to auscultation. HEART: Regular rate and rhythm. No murmur appreciated. EXTREMITIES: Normal range of motion. No edema. SKIN: Warm, dry, no rash. Capillary refill normal. Normal skin turgor. NEURO: No focal deficits. Alert and oriented x3. Gait steady. PSYCH: Normal affect. No signs of depression or anxiety. Course Course Level of Care: Express Care Visit Vital Signs Vital signs: Vital Signs Temperature 99.2 F 11/04/24 09:00 Pulse Rate 89 11/04/24 09:00 Respiratory Rate 16 11/04/24 09:00 Blood Pressure 147/57 H 11/04/24 09:00 Pulse Oximetry 95 11/04/24 09:00 Oxygen Delivery Room Air 11/04/24 09:00 Temperature 99.2 F 11/04/24 09:00 Pulse Rate 89 11/04/24 09:00 Respiratory Rate 16 11/04/24 09:00 Blood Pressure 147/57 H 11/04/24 09:00 Pulse Oximetry 95 11/04/24 09:00 Oxygen Delivery Room Air 11/04/24 09:00 Reviewed MDM - URI/Sore Throat MDM Narrative Medical decision making narrative: Influenza a positive. COVID negative. Patient is out of the window for Tamiflu. She has declined prescription for cough medicine. Discussed [id number] medication use and duration of illness as well as ED precautions. Anticipatory guidance given Differential Diagnosis Differential diagnosis: Likely upper respiratory infection, otitis media, viral infection, influenza and other (COVID-19) Lab Data Attestation: I reviewed the patient's lab results. Labs: Lab Results 11/04/24 Range/Units 09:15 POC Influenza A Ag Positive (Negative) POC Influenza B Ag Negative (Negative) POC SARS CoV-2 Ag Negative (Negative) Critical Care Time Critical Care Time Critical Care Time: No Discharge Plan Discharge Clinical Impression: Influenza A Patient Disposition: Home, Self-Care Condition: Stable Instructions: Influenza (DC) Additional Instructions: You have tested positive for influenza A. Virus symptoms can last for up to 7-10days. Rest and stay hydrated. Follow up with your PCP in 7 days if symptoms are not improving. Go to the ER immediately if you develop shortness of breath, difficulty swallowing, or any other concerning symptoms. Continue [id number] medication such as Delsym, Tylenol for your symptoms. As discussed, please go to the ER immediately if you develop a fever greater than 100.3, shortness of breath, or any additional concerning symptoms. Your blood pressure was elevated above 120/80 today at Urgent Care. This puts you above the threshold for follow up. Please schedule a followup visit with your personal physician as soon as possible, for further evaluation and treatment. Even blood pressure exceeding 120/80 may indicate pre-hypertension. Patient Language: Romanian Prescriptions: No Action vitamin B complex [B Complex-Vitamin B12] Tablet 1 tablet PO DAILY magnesium oxide 400 mg magnesium tablet 400 mg PO DAILY (DME) blood-glucose meter [Contour Next Meter] Mis See Rx Instructions .Route Qty: 1 0RF Rx Instructions: Use to check BS once daily (DME) lancets Mis See Rx Instructions .ROUTE .COMPLEX Qty: 100 3RF Dose Instruction: USE ONE LANCET TO PRICK SKIN ONCE DAILY Rx Instructions: USE ONE LANCET TO PRICK SKIN ONCE DAILY ferrous sulfate 325 mg (65 mg iron) tablet 325 mg PO BID pyridoxine (vitamin B6) 100 mg/2.5 mL liquid PO mecobalamin (vitamin B12) 1,000 mcg lozenge 1,000 mcg PO DAILY Rx Instructions: allow to dissolve in mouth OR may chew lightly before swallowing Caltrate 600 plus D 600 mg-20 mcg (800 unit) tablet,chewable 1 tablet PO DAILY loratadine [Claritin] 10 mg tablet 10 mg PO DAILY Toujeo Max U-300 SoloStar 300 unit/mL (3 mL) insulin pen 112 unit subcut DAILY (DME) pen needle, diabetic [BD Ultra-Fine Micro Pen Needle] 32 gauge x 1/4 needle See Rx Instructions .ROUTE .COMPLEX Qty: 100 2RF Dose Instruction: USE TWICE DAILY DIRECTED Rx Instructions: USE TWICE DAILY DIRECTED metoprolol succinate 50 mg tablet extended release 24 hr 50 mg PO QAM Qty: 90 1RF Rx Instructions: TAKE 1 TABLET BY MOUTH EVERY DAY metformin 500 mg tablet extended release 24 hr 1,000 mg PO BID Qty: 360 1RF Rx Instructions: TAKE TWO TABLETS BY MOUTH TWICE DAILY Jardiance 25 mg tablet 25 mg PO QAM Qty: 90 1RF atorvastatin 20 mg tablet See Rx Instructions .ROUTE .COMPLEX Qty: 90 1RF Dose Instruction: TAKE 1 TABLET BY MOUTH EVERY DAY AT BEDTIME Rx Instructions: TAKE 1 TABLET BY MOUTH EVERY DAY AT BEDTIME lisinopril 40 mg tablet See Rx Instructions .ROUTE .COMPLEX Qty: 90 3RF Dose Instruction: TAKE 1 TABLET BY MOUTH EVERY DAY Rx Instructions: TAKE 1 TABLET BY MOUTH EVERY DAY glyburide 5 mg tablet 10 mg PO BID Qty: 360 1RF Rx Instructions: TAKE 2 TABLETS BY MOUTH TWICE A DAY (DME) Contour Next Test Strips Strip See Rx Instructions .Route Qty: 100 3RF Rx Instructions: Use to check BS once daily Follow-up/Referrals: Elana Restrepo, BEAUTY ADVISOR-C [Primary Care Provider] - Time of Disposition: 09:21
== END 2024-11-04 09:24 | disposition home or self-care (01) ==
PROVIDERS: Emergency Provider Nurse Practitioner; PCP Clinical Nurse Specialist
DX: J10.1 Influenza due to other identified influenza virus with other respiratory manifestations (principal); Z20.822 Contact with and (suspected) exposure to COVID-19; E11.9 Type 2 diabetes mellitus without complications; Z79.4 Long term (current) use of insulin; I10 Essential (primary) hypertension; E78.2 Mixed hyperlipidemia; M16.12 Unilateral primary osteoarthritis, left hip; M17.11 Unilateral primary osteoarthritis, right knee; E66.9 Obesity, unspecified; Z68.39 Body mass index [BMI] 39.0-39.9, adult; Z96.642 Presence of left artificial hip joint
CPT/HCPCS: 87426; 87804; 99212; 99213; G0463